=== PATIENT | female | born 1960 | race Caucasian/White ===

== ENCOUNTER 2024-09-06 11:11 | Observation (INO) ==
[2024-09-06] MEDS: SODIUM CHLORIDE 0.9% 1,000 ML IV SCH (11:39)
[2024-09-06 11:59] LABS: Basophils # (auto) 0.04 K/uL (0.00-0.20); Basophils % (auto) 0.5 %; Eosinophils # (auto) 0.02 K/uL (0.00-0.50); Eosinophils % (auto) 0.3 %; Hematocrit (blood only) 39.1 % (37.0-47.0); Hemoglobin 13.2 g/dl (12.0-16.0); Immature Granulocytes # (auto) 0.03 K/uL (0.01-0.20); Immature Granulocytes % (auto) 0.4 %; Lymphocytes # (auto) 0.77 K/uL (1.20-3.40); Lymphocytes % (auto) 9.8 %; Mean Corpuscular Hemoglobin 30.2 pg (25.0-34.0); Mean Corpuscular Hgb Conc 33.8 g/dL (32.0-36.0); Mean Corpuscular Volume 89.5 fL (80.0-100.0); Mean Platelet Volume 10.5 fL (9.4-12.4); Monocytes # (auto) 0.52 K/uL (0.11-0.59); Monocytes % (auto) 6.6 %; Neutrophils % (auto) 82.4 %; Platelet Count 276 K/uL (130-400); RDW Coefficient of Variation 13.5 % (11.5-14.5); RDW Standard Deviation 44.3 fL (36.4-46.3); Red Blood Count 4.37 M/uL (4.20-5.40); White Blood Count 7.88 K/ul (4.8-10.8)
--- NOTE | 2024-09-06 12:05 | XRay Report ---
EXAM: Radiograph of the Chest 1 View INDICATION: Syncope. TECHNIQUE: Frontal view of the chest. COMPARISON: No relevant prior studies available. FINDINGS: Lungs and pleural spaces: No consolidation or pulmonary edema. No pleural effusion or pneumothorax. Heart: Shape and configuration within normal limits allowing for technique. Mediastinum: Normal contour. Bones/joints: Degenerative changes noted throughout the spine. No acute osseous abnormality seen. Soft tissues: No abnormality noted. No radiopaque foreign body noted. Upper abdomen: No abnormality noted. IMPRESSION: No acute cardiopulmonary disease. ACT 112: Negative or not required by law. Electronically signed by Kasia Howard 09-06-2024 12:05 PM
[2024-09-06 12:15] LABS: Albumin Globulin Ratio 1.4 (0.9-2); Albumin Level 3.4 gm/dl (3.4-5.0); BUN Creatinine Ratio 14.5 (10-20); Bilirubin,Total 0.6 mg/dl (0.2-1.0); Calcium 8.1 mg/dl (8.6-10.3); Creatinine Clr Calc Pharmacy 85.1 ml/min; Globulin 2.4 gm/dl (2.5-4.0); Magnesium 1.9 mg/dl (1.7-2.4); Total Protein 5.8 gm/dl (6.0-8.3)
--- NOTE | 2024-09-06 12:34 | CT Scan Report ---
EXAM: CT Head Without Intravenous Contrast INDICATION: Syncope TECHNIQUE: Axial computed tomography images of the head/brain without intravenous contrast. Sagittal and/or coronal reformats are provided. Sagittal and coronal reformatted images were created and reviewed. This CT exam was performed using one or more of the following dose reduction techniques: automated exposure control, adjustment of the mA and/or kV according to patient size, and/or use of iterative reconstruction technique. COMPARISON: No relevant prior studies available. FINDINGS: Limitations: None. Brain and extra-axial spaces: Right frontal encephalomalacia subjacent to right craniectomy. Mild periventricular white matter hypodensity most typical of chronic ischemic changes. No territorial infarct. No hemorrhage. No extra-axial fluid collection or hydrocephalus. Bones/joints: No fracture. Soft tissues: No significant abnormality noted. Vasculature: No acute abnormality noted. Sinuses: No layering fluid in the visualized portions of the paranasal sinuses. Mastoid air cells: No mastoid effusion. Orbits: No significant abnormality noted. IMPRESSION: No acute abnormality. ACT 112: Negative or not required by law. Electronically signed by Kasia Howard 09-06-2024 12:33 PM
--- NOTE | 2024-09-06 12:37 | CT Scan Report ---
EXAM: CT Cervical Spine Without Intravenous Contrast INDICATION: Syncope TECHNIQUE: Axial computed tomography images of the cervical spine without intravenous contrast. Sagittal and coronal reformatted images were created and reviewed. This CT exam was performed using one or more of the following dose reduction techniques: automated exposure control, adjustment of the mA and/or kV according to patient size, and/or use of iterative reconstruction technique. COMPARISON: No relevant prior studies available. FINDINGS: Limitations: None. Vertebrae: Diffuse moderate facet hypertrophy. There is mild spondylosis and uncal spurring C5-C6 and C6-C7. No fracture or subluxation. Discs/spinal canal/neural foramina: There is mild to moderate to space narrowing C6-C7. There is asymmetric left mild ventral canal and left foraminal stenosis at this level. Soft tissues: No significant abnormality noted. Thyroid: Multiple right thyroid nodules present the largest measuring 2.3 x 2.1 cm. Lung apices: No significant abnormality noted. IMPRESSION: 1. No fracture. 2. Multilevel degenerative changes. 3. Right thyroid nodule. Nonemergent thyroid ultrasound recommended unless already known. ACT 112: Negative or not required by law. Electronically signed by Kasia Howard 09-06-2024 12:36 PM
[2024-09-06] MEDS: OPTIRAY 320 125ml IV ONE (13:15)
[2024-09-06 13:37] LABS: Appearance Urine Clear (Clear); Bacteria Urine Automated None Seen (None Seen); Bilirubin Urine Negative (Negative); Blood Urine Negative (Negative); Color Urine Yellow; Epithelial Cell Urine Auto 0-2 /hpf (0-2); Glucose Urine UA Negative (Negative); Ketones Urine 1+ (Negative); Leukocyte Esterase Urine Trace (Negative); Nitrite Urine Negative (Negative); Protein Urine Negative (Negative); RBC Urine Automated 0-2 /hpf (0-2); Specific Gravity Urine 1.016 (1.000-1.030); Urobilinogen Urine Negative (Negative); WBC Urine Automated 0-5 /hpf (0-5)
--- NOTE | 2024-09-06 13:44 | CT Scan Report ---
EXAM: CT Angiography Chest With Intravenous Contrast INDICATION: Rule out PE. TECHNIQUE: Axial computed tomographic angiography images of the chest with intravenous contrast. Sagittal and coronal reformatted images were created and reviewed. This CT exam was performed using one or more of the following dose reduction techniques: automated exposure control, adjustment of the mA and/or kV according to patient size, and/or use of iterative reconstruction technique. MIP reconstructed images were created and reviewed. CONTRAST: 119ml of Optiray 320 was administered intravenously. COMPARISON: No relevant prior studies available. FINDINGS: Pulmonary arteries: No abnormality noted. No pulmonary embolism. Aorta: No acute change noted. No thoracic aortic aneurysm or dissection. Lungs and pleural spaces: Trace bilateral layering pleural effusions noted. No pneumothorax. No mass. Heart: Mild cardiomegaly. Trace pericardial effusion. No right heart strain. Mediastinum: Small sliding hiatal hernia noted. Thyroid: There is a 2.3 x 2.2 x 2.6 cm right thyroid nodule. Bones/joints: Degenerative changes noted throughout the spine. No acute osseous abnormality seen. Soft tissues: No abnormality noted. Lymph nodes: No abnormality noted. No enlarged lymph nodes. IMPRESSION: 1. Trace bilateral pleural effusions. No pulmonary embolism noted. 2. Right thyroid nodule measures up to 2.6 cm. Nonemergent thyroid ultrasound recommended unless already known. ACT 112: Negative or not required by law. Electronically signed by Kasia Howard 09-06-2024 13:43 PM
[2024-09-06 13:53] LABS: Amphetamines+Metham, Urine Neg (Neg); Barbiturates, Urine Neg (Neg); Benzodiazepine, Urine Neg (Neg); Cocaine, Urine Neg (Neg); Fentanyl, Urine Neg (Neg); MDMA (Ecstacy), Urine Neg (Neg); Marijuana, Urine Neg (Neg); Methadone, Urine Neg (Neg); Opiate, Urine Neg (Neg); Phencyclidine, Urine Neg (Neg)
[2024-09-06] MEDS: POTASSIUM CHLORIDE CRTAB 20 MEQ TABCR PO STA (14:14)
--- NOTE | 2024-09-06 15:04 | History & Physical Report ---
Date of Service September 06, 2024 Assessment & Plan (1) Syncope due to orthostatic hypotension: (2) Medication adverse effect: (3) Hypokalemia: (4) Major depression, chronic: Plan Patient 64-year-old female presents to the emergency room with acute syncopal event. Syncope most likely due to severe orthostatic hypotension most likely caused by her taking some extra Risperdal. Observed in a monitored unit on telemetry to evaluate for any arrhythmias. Given additional 1 L of IV fluids over the next 10 hours Replace potassium Will not hold her usual Risperdal dose, but did inform the patient she will not get any additional Risperdal this evening. This will also allow us to see how she responds to her prescribed dose of Risperdal and ensure she does not have recurrent hypotension. Check orthostatic vital signs q. shifts at bedside, agreeable with the plan of care Anticipate if blood pressure stabilizes patient will be discharged tomorrow with instructions to take Risperdal only as prescribed History of Present Illness Chief Complaint: Passed out in bathroom Primary Care Provider: RONALDO Lai Patient is a 64-year-old female with minimal past medical history. She and her family were expecting a group of people to be at their house today for the Thanksgiving dinner. It was somewhat unusual that she was not up and preparing here this morning. Her was down stairs and he heard a thud coming from the upstairs bathroom. He found the patient lying in the bathroom after what it presumed to be a syncopal event. There is no significant confusion after the event. Able to get her to the bed but she had a second syncopal event. EMS was called. In transit to the ED patient received 1 L of IV fluids. In the ED her presentation blood pressure was extremely low. She received another liter of IV fluid and her blood pressure improved. Laboratory studies were remarkable for some hypokalemia. There was no significant arrhythmias noted on telemetry monitoring. But due to her symptomatology she was referred to our service for further evaluation. Time my evaluation the patient denies any symptoms. She could remember getting up and going to the bathroom and passing out in the bathroom next thing she remembers is looking up into her son's face. She she states that she has been feeling well. No cough or cold symptoms. No fever or chills. No shortness of breath, chest pain. No nausea vomiting, no new issues with her bowels or bladder. She states that she has been eating and drinking well. at the bedside states that they have been doing their usual activities. They have been a little bit more stressed preparing for the Thanksgiving meal but nothing that he felt was overwhelming. The patient does have significant depression which she follows with a psychiatrist. There has been no recent changes in her medications. However, patient did state that she took some extra Risperdal to help her sleep last evening. Explained to her that one of the side effects of Risperdal orthostatic hypotension and tachycardia both of which she has at this time. Patient uses alcohol rarely. Not a current smoker. She denies any history of previous syncopal events and no history of any type of cardiac issues. Allergies Allergy/AdvReac Type Severity Reaction Status Date / Time No Known Allergies Allergy Unverified 09/06/24 14:06 Home Medications Medication Instructions Recorded Confirmed Type aspirin 81 mg tablet,delayed 81 mg PO DAILY 09/06/24 09/06/24 History release citalopram 40 mg tablet 40 mg PO QAM 09/06/24 09/06/24 History multivitamin with minerals-folic 1 tab PO DAILY 09/06/24 09/06/24 History acid 200 mcg chewable tablet (Multivitamin Gummies) risperidone 1 mg tablet 1 mg PO HS 09/06/24 09/06/24 History zinc 50 mg capsule 50 mg PO DAILY 09/06/24 09/06/24 History Past Med/Surg History Problem List (Updated 09/06/24 @ 15:01 by Dioni Gaines DO) Major depression, chronic Hypokalemia Medication adverse effect Syncope due to orthostatic hypotension Social History Smoking Status: Never smoker Preferred Language: Latvian Feels Safe at Home: Yes Review of Systems Review of Systems: Pertinent positive and negative review of systems as mentioned in the HPI Physical Exam Physical Exam: Constitutional: Alert, fatigued in appearance, nontoxic HEENT: Mucous membranes moist. Sclera clear Neck: Soft, no adenopathy Lungs: Clear to auscultation, decreased, no wheezes rales or rhonchi CV: S1-S2, regular, tachycardic Abdomen: Soft, nontender, nondistended Extremities: No significant edema Musculoskeletal: No significant joint tenderness Neuro: No focal deficits Psych: Cooperative, normal mood Results & Data Results & Data Vital Signs (Past 12 Hours) Vital Signs Temp Pulse Pulse Resp BP BP Pulse Ox 09/06/24 14:31 110/51 L 09/06/24 14:21 112 H 16 94 09/06/24 14:17 102/74 09/06/24 14:00 87 20 102/62 93 09/06/24 13:51 89 17 93 09/06/24 13:45 98 H 13 97/64 L 96 09/06/24 13:42 103 H 18 96 09/06/24 13:36 97 H 11 L 96 09/06/24 13:24 111 H 16 98 09/06/24 13:00 98 H 16 99/65 L 98 09/06/24 12:51 104 H 23 97 09/06/24 12:46 113/59 L 09/06/24 12:42 106 H 25 H 113/69 97 09/06/24 12:39 106 H 22 98 09/06/24 12:30 97/69 L 09/06/24 12:24 117 H 22 98 09/06/24 12:17 90/63 L 09/06/24 12:03 106 H 19 98 09/06/24 12:01 88/54 L 09/06/24 12:01 106 H 17 88/54 L 98 09/06/24 11:51 108 H 23 99 09/06/24 11:46 93/53 L 09/06/24 11:45 112 H 23 99 09/06/24 11:42 103 H 15 98 09/06/24 11:37 96 09/06/24 11:29 107 H 15 80/37 L 98 09/06/24 11:26 113 H 09/06/24 11:16 98 09/06/24 11:16 36.6 C 105 H 18 79/57 L 98 O2 Del Method 09/06/24 14:31 09/06/24 14:21 09/06/24 14:17 09/06/24 14:00 09/06/24 13:51 09/06/24 13:45 09/06/24 13:42 09/06/24 13:36 09/06/24 13:24 09/06/24 13:00 09/06/24 12:51 09/06/24 12:46 09/06/24 12:42 09/06/24 12:39 09/06/24 12:30 09/06/24 12:24 09/06/24 12:17 09/06/24 12:03 09/06/24 12:01 09/06/24 12:01 09/06/24 11:51 09/06/24 11:46 09/06/24 11:45 09/06/24 11:42 09/06/24 11:37 Room Air 09/06/24 11:29 Room Air 09/06/24 11:26 09/06/24 11:16 Room Air 09/06/24 11:16 Room Air Diagnostic Findings Reviewed imaging, laboratory and diagnostic studies. Pertinent findings as below. Personally reviewed chest x-ray, no acute cardiopulmonary abnormalities Reviewed radiology reports for head CT, cervical spine CT and chest CTA, no acute findings CBC within normal ranges Basic metabolic profile reviewed, potassium 3.0 Creatinine 0.69 Lactate 1.8 Magnesium 1.9 Procalcitonin less than 0.02 Urinalysis unremarkable Urine drug screen negative Ethyl alcohol less than 10 EKG unavailable for review at this time/pending Reviewed outside EMR. Reviewed medication list, problem list, outpatient office notes. Confirm no recent change in medications
[2024-09-06] MEDS ORDERED: ALUMINUM/MAGNESIUM SUSP 30 ML UDC PO PRN (16:12)
[2024-09-06] MEDS ORDERED: ACETAMINOPHEN 325 MG TAB PO PRN (16:12)
[2024-09-06] MEDS ORDERED: ONDANSETRON INJ 2 MG/ML 2 ML VIAL IV PRN (16:12)
[2024-09-06] MEDS: SODIUM CHLORIDE 0.9% 500 ML IV SCH (16:17)
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
[2024-09-06] MEDS: POTASSIUM CHLORIDE CRTAB 20 MEQ TABCR PO ONE (17:34)
[2024-09-06] MEDS: SODIUM CHLORIDE 0.9% 1,000 ML IV ONE (17:35)
[2024-09-06] MEDS: risperiDONE 1 MG TABLET PO SCH (20:49)
[2024-09-07 07:16] LABS: BUN Creatinine Ratio 9.2 (10-20); Calcium 8.1 mg/dl (8.6-10.3); Creatinine Clr Calc Pharmacy 89.3 ml/min; Magnesium 2.1 mg/dl (1.7-2.4); Potassium 4.3 mmol/L (3.5-5.1)
[2024-09-07 07:47] VITALS: RESP 18; TEMP 97.7
[2024-09-07] MEDS: CITALOPRAM 40 MG TAB PO SCH (08:22)
[2024-09-07] MEDS: ASPIRIN 81 MG ECTAB PO SCH (08:22)
--- NOTE | 2024-09-07 09:11 | Hospitalist Progress Note ---
Date of Service September 07, 2024 Assessment & Plan (1) Syncope due to orthostatic hypotension: (2) Medication adverse effect: (3) Hypokalemia: (4) Major depression, chronic: Plan Per admitting service notes with addendum: Patient 64-year-old female presents to the emergency room with acute syncopal event. Syncope most likely due to severe orthostatic hypotension most likely caused by her taking some extra Risperdal. Observed in a monitored unit on telemetry to evaluate for any arrhythmias. Given additional 1 L of IV fluids over the next 10 hours Replace potassium Will not hold her usual Risperdal dose, but did inform the patient she will not get any additional Risperdal this evening. This will also allow us to see how she responds to her prescribed dose of Risperdal and ensure she does not have recurrent hypotension. Check orthostatic vital signs q. shifts at bedside, agreeable with the plan of care 09/07 Orthostatic vital signs including blood pressure and heart rate much improved after IV fluids No arrhythmia noted by telemetry Continue to monitor If blood pressure still remains stable at noon, will discharge patient Advised not to take additional Risperdal Advised to increase water intake-8 glasses/day Patient verbalized understanding and agreement Admission and Anticipated Discharge Date Admission Date: September 06, 2024 Subjective Follow-up for syncope, etc. Seen resting in bed, comfortable, not in distress, in good spirits States she feels much better overall Ambulating in the room to the bathroom with no problems No dizziness, shortness of breath, palpitations, chest pain, lightheadedness No other new symptoms States she is ready for discharge today Review of Systems Review of Systems: all noted and negative except for above Physical Exam Physical Exam: General- oriented x 3, not in distress, speaks in sentences with no effort or accessory muscle use Eyes- anicteric Neck- no JVD Lungs- clear breath sounds bilaterally, no crackles or wheezing Heart- normal rate, regular rhythm; no murmurs Abdomen- normal bowel sounds, nondistended, soft, nontender Extremities- no pretibial edema, no calf tenderness Neuro- alert, oriented x 3; no gross focal neurologic deficits Skin- warm & dry Results & Data Results & Data Vital Signs (Past 12 Hours) Vital Signs Temp Pulse Pulse Pulse Resp BP Pulse Ox 09/07/24 07:46 36.5 C 77 18 110/62 93 11/29/24 05:54 91 H 09/07/24 03:59 36.7 C 112 H 20 115/72 96 09/07/24 00:03 36.9 C 71 20 98/62 L 93 09/06/24 21:52 75 O2 Del Method 09/07/24 07:46 Room Air 09/07/24 05:54 09/07/24 03:59 Room Air 09/07/24 00:03 Room Air 09/06/24 21:52 all noted and reviewed including below
--- OUTSIDE RECORDS SUMMARY | 2024-09-07 09:22 | External Medical Summary | Summary of Care ---
Author Name Unknown Organization [facility] Address [address] [place] [address] Phone [phone] Care Team Providers Care Records Management Engineer Name Role Phone Nhung Larsen DO Primary Care Provider Reason for Visit * Reason Onset Date Comments Advice 08/28/2024 Encounter Details Date Type Department Care Team (Late st Contact Info) Description 08/28/2024 Telephone Family Practice [facility] [address] [place] [address] Nhung Larsen DO [address] [place] [address] Advice Allergies Active Allergy Reactions Criticality Noted Date Comments Vitamin A (Synthetic) Rash 01/25/2010 documented as of this encounter (statuses as of 08/28/2024) Medications CITALOPRAM HYDROBROMIDE 40 MG PO TABS 1 daily Active risperiDONE 1 MG Oral Tablet (RisperDAL) Take 1 Tablet by mouth at bedtime. 3 Active Aspirin 81 MG Oral Tablet Delayed Release (Aspirin 81) Take 1 Tablet by mouth in the morning. Active Zinc 20 MG Oral Capsule Take by mouth. Active Zoster Vac Recomb Adjuvanted 50 MCG/0.5ML Intramuscular Suspension Reconstituted (Shingrix) Inject 0.5 mL into a large muscle now and repeat dose in 60 to 180 days 1 Each 1 Active documented as of this encounter (statuses as of 08/28/2024) Active Problems Problem Noted Date Diagnosed Date Major depressive disorder, r ecurrent, severe with psychotic symptoms 08/28/2024 Calculus of gallbladder with out cholecystitis without obstruction 07/04/2023 Spasm of muscle 04/26/2011 Major depressive disorder, single episode, moder ate 06/29/2007 Irritable bowel syndrome documented as of this encounter (statuses as of 08/28/2024) Resolved Problems Problem Noted Date Diagnosed Date Resolved Date Food insecurity 04/18/2023 01/19/2024 Overview: Per [facility] Protocol ADVANCE DIRECTIVE INFORMATION 06/29/2007 08/13/2024 Overview (06/29/2007): No, Advance Directive brochure offered , patient declined. documented as of this encounter (statuses as of 08/28/2024) Immunizations Name Administration Dates Next Due COVID-19, MRNA-LNP, PF, 30 M CG/0.3 mL, 12 YRS AND ABOVE, IM (PFIZER-Comirnaty) 06/15/2024 H1N1 2009 Influenza, IM 09/29/2009 Seasonal Influenza Vac., MDV , IM, 0.5 mL (Fluzone) 07/11/2014,07/10/2013,06/27/2012,2010,08/04/2010,07/05/2009 Seasonal Influenza, High Dos e, Trivalent, PF, IM (Fluzone HD) 06/13/2024 Seasonal Influenza, PF, 6 M & above, IM , (FluLaval or Fluzone) 07/04/2023,06/18/2021,06/21/2020,2018,07/13/2018 Seasonal Influenza, Quadriva lent, No Preserve, IM 06/23/2017,06/29/2016,07/16/2015 TD, Preservative Free 04/01/2023 TDAP, Age 7 and older, IM (Adacel) 01/13/2009 Varicella Zoster Vaccine (Adult) 03/24/2022,05/2022 documented as of this encounter Social History Tobacco Use Types Packs/Day Years Used Date Smoking Tobacco: Former Smokeless Tobacco: Never Comments:smoked socially int o early 20' Alcohol Use Standard Drinks/Week Comments Yes 0 (1 standard drink = 0.6 oz pur e alcohol) rare Hunger Vital Sign Answer Date Recorded Within the past 12 months, y ou worried that your food would run out before you got the money to buy more. Never true 08/16/20 24 Within the past 12 months, t he food you bought just didn't last and you didn't have money to get more. Never true 08/16/2024 Childcare Answer Date Recorded Do you feel overwhelmed with taking care of a child, family member or friend? No 08/16/2024 Does your family need help f inding childcare? (Household - for ages 0-17 years) Not on file 08/16/2024 Clothing Answer Date Recorded Have you been unable to get clothing when it was really needed? No 08/16/2024 Is your family able to get c lothes or diapers when needed? (Household - for ages 0-17 years) Not on file 08/16/2024 Personal Safety Answer Date Recorded Do you feel unsafe or have concerns for your saf ety? No 08/16/2024 Do you have concerns for you r family's safety? (Household - for ages 0-17 years) Not on file 08/16/2024 Utilities Answer Date Recorded Do you have trouble paying y our heating, water, or electric bill? No 08/16/2024 Is your family able to pay t he heat, water, or electric bill? (Household - for ages 0-17 years) Not on file 08/16/2024 Does your family have access to good internet? (Household - for ages 0-17 years) Not on file 08/16/2024 Employment Status Answer Date Recorded Are you unemployed or without regular income? No 08/16/2024 Does the household have a re gular source of income? (Household - for ages 0-17 years) Not on file 08/16/2024 Social Connections Answer Date Recorded How often do you feel lonely or isolated from those around you? Sometimes 08/16/2024 Financial Resource Strain Answer Date R ecorded Do you have any trouble payi ng for your medications, or do you think you might in the future? No 08/16/2024 Does your family have troubl e paying for medicine? (Household - for ages 0-17 years) Not on file 08/16/2024 Transportation Needs Answer Date Record ed READ ONLY Do you have troubl e getting a ride to medical visits or work? Never True 08/16/2024 Does your family have a hard time getting a ride to doctors visits? (Household - for ages 0-17 years) Not on file 08/16/2024 Has lack of transportation k ept you from medical appointments, meetings, work, or from getting things needed for daily living? Check all that apply. No 08/16/2024 Do you (or your family) have trouble finding or paying for a ride (transportation)? (Household - for ages 0-17 years) Not on file 08/16/2024 Housing Stability Answer Date Recorded Do you currently live in a s helter or have no steady place to sleep at night? No 08/16/2024 READ ONLY Do you think you a re at risk of becoming homeless? No 08/16/2024 Does your family worry about paying for your home or becoming homeless? (Household - for ages 0-17 years) Not on file 1 10/16/2023 Are you homeless or worried that you might be in the future? No 08/16/2024 Are you (or your family) last eless or worried that you might be in the future? (Household - for ages 0-17 years) Not on file Food Insecurity Answer Date Recorded Do you need food for this week? No 08/16/2024 Are you able to get enough f ood for your family? (Household - for ages 0-17 years) Not on file 08/16/2024 Does your family need food t his week? (Household - for ages 0-17 years) Not on file 08/16/2024 Do you always have enough fo od for your family? (Household - for ages 0-17 years) Not on file 08/16/2024 Comments No Sex and Gender Information Value Date Recorded Sex Assigned at Female 03/31/2023 11:22 AM EDT Legal Sex Female 6:31 AM EST Gender Identity Female 03/31/2023 11:22 AM EDT Sexual Orientation Straight 03/31/2023 11 :22 AM EDT Occupation Industry Job Start Date Job End Date homemaker Not on file Not on file Not on file documented as of this encounter Miscellaneous Notes * Telephone Encounter - Juliet Lala LPN - 08/28/2024 2:12 PM EST Sebastián calling from [facility] pharmacy states he received a scrip 08/28/24 for shingles vaccine for patient. Patient received vaccines at pharmacy on 03/24/2022 and 12/15/2021. Immunization list updated. Left VM for patient on Identified Mobile # that vaccine is not needed. * Telephone Encounter - Tanika Apodaca OSA - 08/28/2024 1:57 PM EST Sebastián from [facility] call states that he received request for shingles vaccine for patient, patient had the vaccine 2 years ago, wanted to confirm this is correct, trans to [facility] nurse: Gene Patient had vaccine on 12/15/2021 and 03/24/2022 documented in this encounter Plan of Treatment Health Maintenance Due Date Last Done Comments Depression Monitoring 1971 HIV Screening 1974 Hepatitis C Screening 1977 Fecal Occult Blood Test 2004 Sigmoidoscopy 2004 Colonoscopy 07/18/2019 07/18/2009 Zoster Vaccines (1 of 2) 05/19/2022 03/24/2022, 03/0 05/2022 DXA Scan 2024 Pneumococcal Vaccine: 65+ Years (1 of 1 - PCV) 2024 COVID-19 Vaccine (2 - Pfizer risk series) 07/06/2024 06/15/2024 Mammogram 06/12/2025 06/12/2024, 08/3 10/2022, 04/27/2012, Additional history exists Cologuard 06/21/2026 06/21/2023, 03/2023, 06/15/2023 Colorectal Cancer Screening 06/21/2026 Diabetes Screening 08/01/2027 08/01/2024, 1 , 06/06/2023, Additional history exists Lipid Panel 08/01/2029 08/01/2024, 05/11, 09/09/2022, Additional history exists DTap/Tdap Vaccines (3 - Td or Tdap) 04/01/2033 04/01/2023, 01/13/2009 Cervical Cancer Screening Discontinued HPV/Co-Test Discontinued 01/11/2024 Pap Smear Discontinued 01/11/2024, 03/12, 03/18/2010, Additional history exists Influenza Vaccine (FLU shot) Completed 06/13/2024, 07/04/2023, 06/18/2021, Additional history exists HPV (Gardasil) Vaccine Aged Out No lo nger eligible based on patient's age to complete this topic Hepatitis B Vaccine Aged Out No longe r eligible based on patient's age to complete this topic MENINGOCOCCAL (MENACTRA/MENVEO) Aged Out No longer eligible based on patient's age to complete this topic documented as of this encounter Medical Devices Not on filedocumented as of this encounter Care Teams Records Management Engineer Relationship Specialty Start Date End Date Nhung Larsen DO [address] [place] [address] PCP - General Family Medicine 05/19/23 documented as of this encounter
--- OUTSIDE RECORDS SUMMARY | 2024-09-07 09:22 | External Medical Summary | Summary of Care ---
Author Name Unknown Organization [facility] Address [address] [place] [address] Phone [phone] Care Team Providers Care Timber Harvester Operator Name Role Phone Nhung Larsen DO Primary Care Provider Reason for Visit * Reason Onset Date Comments Advice 08/28/2024 Encounter Details Date Type Department Care Team (Late st Contact Info) Description 08/28/2024 Telephone Family Practice [facility] [address] [place] [address] Nhung Larsen DO [address] [place] [address] Advice Allergies Active Allergy Reactions Criticality Noted [...] 08/28/2024 2:12 PM EST Sebastián calling from [facility] pharmacy states he received a scrip 08/28/24 for shingles vaccine for patient. Patient received vaccines at pharmacy on 03/24/2022 and 12/15/2021. Immunization list updated. Left VM for patient on Identified Mobile # that vaccine is not needed. * Telephone Encounter - Tanika Apodaca OSA - 08/28/2024 1:57 PM EST Sebastián from [facility] call states that he received request for shingles vaccine for patient, patient had the vaccine 2 years ago, wanted to confirm this is correct, trans to [facility] nurse: Gene Patient had vaccine on 12/15/2021 [...] filedocumented as of this encounter Care Teams Timber Harvester Operator Relationship Specialty Start Date End Date Nhung Larsen DO [address] [place] [address] PCP - General Family Medicine 05/19/23 documented as of this encounter
--- OUTSIDE RECORDS SUMMARY | 2024-09-07 09:23 | External Medical Summary | Summary of Care ---
Author Name Unknown Organization [facility] Address [address] [place] [address] Phone [phone] Care Team Providers Care Steam Heating Installer Name Role Phone Nhung Larsen DO Primary Care Provider Reason for Visit * Reason Onset Date Comments Advice 08/28/2024 Encounter Details Date Type Department Care Team (Late st Contact Info) Description 08/28/2024 Telephone Family Practice [facility] [address] [place] [address] Nhung Larsen DO [address] [place] [address] Advice Allergies Active Allergy Reactions Criticality Noted [...] encounter Miscellaneous Notes * Telephone Encounter - Tanika Apodaca OSA - 08/28/2024 1:57 PM EST Sebastián from [facility] call states that he received request for shingles vaccine for patient, patient had the vaccine 2 years ago, wanted to confirm this is correct, trans to ded nurse: Gene Patient had vaccine on 12/15/2021 and 03/24/2022 documented in this encounter Plan of Treatment Health Maintenance Due Date Last Done Comments Depression Monitoring 1971 HIV Screening 1974 Hepatitis C Screening 1977 Fecal Occult Blood Test 2004 Sigmoidoscopy 2004 Colonoscopy 07/18/2019 07/18/2009 Zoster Vaccines (1 of 2) 05/19/2022 03/24/2022, 0305/2022 DXA Scan 2024 Pneumococcal Vaccine: 65+ Years (1 of 1 - PCV) 2024 COVID-19 Vaccine (2 - Pfizer risk series) 07/06/2024 06/15/2024 Mammogram 06/12/2025 06/12/2024, 05/12, 04/27/2012, Additional history exists Cologuard 06/21/2026 06/21/2023, 09/0 03/2023, 06/15/2023 Colorectal Cancer Screening 06/21/2026 Diabetes Screening 08/01/2027 08/01/2024, 1 , 06/06/2023, Additional history exists Lipid Panel 08/01/2029 08/01/2024, 08/2 05/2023, 09/09/2022, Additional history exists DTap/Tdap Vaccines (3 [...] filedocumented as of this encounter Care Teams Steam Heating Installer Relationship Specialty Start Date End Date Nhung Larsen DO [address] [place] [address] PCP - General Family Medicine 05/19/23 documented as of this encounter
--- OUTSIDE RECORDS SUMMARY | 2024-09-07 09:23 | External Medical Summary | Summary of Care ---
Author Name Unknown Organization [facility] Address [address] [place] [address] Phone [phone] Care Team Providers Care Corporate Associate Name Role Phone Nhung Larsen DO Primary Care Provider Encounter Details Date Type Department Care Team (Late st Contact Info) Description 06/13/2024 10:00 AM EDT Immunization Ancillary [facility] [address] [place] [address] [facility] [address] [place] [address] Allergies Active Allergy Reactions Criticality Noted Date Comments Vitamin A (Synthetic) Rash 01/25/2010 documented as of this encounter (statuses as of 06/13/2024) Medications Medication Sig Dispensed Refills Start Date End Date Status CITALOPRAM HYDROBROMIDE 40 MG PO TABS 1 daily Active risperiDONE 1 MG Oral Tablet (RisperDAL) Take 1 Tablet by mouth at bedtime. 02/25/2023 Active Cetirizine HCl 10 MG Oral Tablet (ZyrTEC) Take 1 Tablet by mouth in the morning. Active Aspirin 81 MG Oral Tablet Delayed Release (Aspirin 81) Take 1 Tablet by mouth in the morning. Active Zinc 20 MG Oral Capsule Take by mouth. Active documented as of this encounter (statuses as of 06/13/2024) Active Problems Problem Noted Date Diagnosed Date Calculus of gallbladder with out cholecystitis without obstruction 07/04/2023 Spasm of muscle 04/26/2011 ADVANCE DIRECTIVE INFORMATION 06/29/2007 Overview: No, Advance Directive brochure offered , patient declined. Major depressive disorder, single episode, moder ate 06/29/2007 Irritable bowel syndrome documented as of this encounter (statuses as of 06/13/2024) Resolved Problems Problem Noted Date Diagnosed Date Resolved Date Food insecurity 04/18/2023 01/19/2024 Overview: Per [facility] Protocol documented as of this encounter (statuses as of 06/13/2024) Immunizations Name Administration Dates Next Due H1N1 2009 Influenza, IM 09/29/2009 Seasonal Influenza, High Dos e, Trivalent, PF, IM (Fluzone HD) 06/13/2024 Seasonal Influenza, PF, 6 M & above, IM , (FluLaval or Fluzone) 07/04/2023,06/18/2021,06/21/2020,2018,07/13/2018 Seasonal Influenza, Quadriva lent, No Preserve, IM 06/23/2017,06/29/2016,07/16/2015 Seasonal Influenza, Trivalen t, (IIV3), with Preserv, (Fluzone) 07/11/2014,07/10/2013,06/27/2012,2010,08/04/2010,07/05/2009 TD, Preservative Free 04/01/2023 TDAP, Age 7 and older, IM (Adacel) 01/13/2009 documented as of this encounter Social History Tobacco Use Types Packs/Day Years Used Date Smoking Tobacco: Former Smokeless Tobacco: Never Comments:smoked socially int o early Alcohol Use Standard Drinks/Week Comments Yes 0 (1 standard drink = 0.6 oz pur e alcohol) rare Hunger Vital Sign Answer Date Recorded Within the past 12 months, y ou worried that your food would run out before you got the money to buy more. Never true 01/02/20 24 Within the past 12 months, t he food you bought just didn't last and you didn't have money to get more. Never true 01/02/2024 Childcare Answer Date Recorded Do you feel overwhelmed with taking care of a child, family member or friend? No 01/02/2024 Does your family need help f inding childcare? (Household - for ages 0-17 years) Not on file 01/02/2024 Clothing Answer Date Recorded Have you been unable to get clothing when it was really needed? Yes 01/02/2024 Is your family able to get c lothes or diapers when needed? (Household - for ages 0-17 years) Not on file 01/02/2024 Personal Safety Answer Date Recorded Do you feel unsafe or have concerns for your saf ety? No 01/02/2024 Do you have concerns for you r family's safety? (Household - for ages 0-17 years) Not on file 01/02/2024 Utilities Answer Date Recorded Do you have trouble paying y our heating, water, or electric bill? No 01/02/2024 Is your family able to pay t he heat, water, or electric bill? (Household - for ages 0-17 years) Not on file 01/02/2024 Does your family have access to good internet? (Household - for ages 0-17 years) Not on file 01/02/2024 Employment Status Answer Date Recorded Are you unemployed or without regular income? No 01/02/2024 Does the household have a re gular source of income? (Household - for ages 0-17 years) Not on file 01/02/2024 Social Connections Answer Date Recorded How often do you feel lonely or isolated from th ose around you? Never 01/02/2024 Financial Resource Strain Answer Date R ecorded Do you have any trouble payi ng for your medications, or do you think you might in the future? No 01/02/2024 Does your family have troubl e paying for medicine? (Household - for ages 0-17 years) Not on file 01/02/2024 Transportation Needs Answer Date Record ed READ ONLY Do you have troubl e getting a ride to medical visits or work? Never True 01/02/2024 Does your family have a hard time getting a ride to doctors visits? (Household - for ages 0-17 years) Not on file 01/02/2024 Has lack of transportation k ept you from medical appointments, meetings, work, or from getting things needed for daily living? Check all that apply. (Adult - for ages 18 years and over) Not on file 01/02/2024 Do you (or your family) have trouble finding or paying for a ride (transportation)? (Household - for ages 0-17 years) Not on file 01/02/2024 Housing Stability Answer Date Recorded Do you currently live in a s helter or have no steady place to sleep at night? No 01/02/2024 READ ONLY Do you think you a re at risk of becoming homeless? No 01/02/2024 Does your family worry about paying for your home or becoming homeless? (Household - for ages 0-17 years) Not on file 0 01/02/2024 Are you homeless or worried that you might be in the future? (Adult - for ages 18 years and over) Not on file Are you (or your family) last eless or worried that you might be in the future? (Household - for ages 0-17 years) Not on file Food Insecurity Answer Date Recorded Do you need food for this week? No 01/02/2024 Are you able to get enough f ood for your family? (Household - for ages 0-17 years) Not on file 01/02/2024 Does your family need food t his week? (Household - for ages 0-17 years) Not on file 01/02/2024 Do you always have enough fo od for your family? (Household - for ages 0-17 years) Not on file 01/02/2024 Sex and Gender Information Value Date Recorded Sex Assigned at Female 03/31/2023 11:22 AM EDT Gender Identity Female 03/31/2023 11:22 AM EDT Sexual Orientation Straight 03/31/2023 11 :22 AM EDT Job Start Date Occupation Industry Not on file Not on file Not on file documented as of this encounter Plan of Treatment Upcoming Encounters Date Type Department Care Team (Late st Contact Info) Description 08/28/2024 1:00 PM EST Office Visit Family Practice [facility] [address] [place] [address] Gretel Abdi CRNP [address] [place] [address] Health Maintenance Due Date Last Done Comments Depression Monitoring 1971 HIV Screening 1974 Hepatitis C Screening 1977 Fecal Occult Blood Test 2004 Sigmoidoscopy 2004 Zoster Vaccines (1 of 2) 2009 Colonoscopy 07/18/2019 07/18/2009 DXA Scan 2024 Pneumococcal Vaccine: 65+ Years (1 of 1 - PCV) 2024 COVID-19 Vaccine (1 - 2022-24 season) 2024 Mammogram 06/12/2025 06/12/2024, 05/12, 04/27/2012, Additional history exists Diabetes Screening 06/06/2026 06/06/2023, 0 06/06/2023, 09/09/2022, Additional history exists Cologuard 06/21/2026 06/21/2023, 090 03/2023, 06/15/2023 Colorectal Cancer Screening 06/21/2026 Lipid Panel 06/06/2028 06/06/2023, 12/0 10/2021, 10/08/2021, Additional history exists DTap/Tdap Vaccines (3 - [...] filedocumented as of this encounter Care Teams Corporate Associate Relationship Specialty Start Date End Date Nhung Larsen DO [address] [place] [address] PCP - General Family Medicine 05/19/23 documented as of this encounter
--- OUTSIDE RECORDS SUMMARY | 2024-09-07 09:23 | External Medical Summary ---
Author Name Unknown Address Unknown Organization [id number]:[facility] [place] - [address] [place] [address] Laboratory Report Ordering Provider Test Date Status PACO BACA 08/01/2024 08:16:55 Final Observation Date Value Abnormality Reference (Units ) Status Prolactin [Mass/volume] in Serum or Plasma by 3rd IS 08/01/2024 08:16:55 64.2 Above high normal 4.0-20.0 (ng/mL) Final Performing Location [facility] [place] - [address] [place] [address]
--- OUTSIDE RECORDS SUMMARY | 2024-09-07 09:23 | External Medical Summary | Summary of Care ---
Author Name Unknown Organization [facility] Address [address] [place] [address] Phone [phone] Care Team Providers Care Supervising Nurse Name Role Phone Nhung Larsen DO Primary Care Provider Reason for Visit * Reason Onset Date Comments Health Maintenance 06/07/2024 Encounter Details Date Type Department Care Team (Late st Contact Info) Description 06/07/2024 Telephone Family Practice [facility] [address] [place] [address] Nhung Larsen DO [address] [place] [address] Health Maintenance Allergies Active Allergy Reactions Criticality Noted Date Comments Vitamin A (Synthetic) Rash 01/25/2010 documented as of this encounter (statuses as of 06/07/2024) Medications Medication Sig Dispensed Refills Start Date [...] as of this encounter (statuses as of 06/07/2024) Active Problems Problem Noted Date Diagnosed Date Calculus of gallbladder with out cholecystitis without obstruction 07/04/2023 Spasm of muscle 04/26/2011 ADVANCE DIRECTIVE INFORMATION 06/29/2007 Overview: No, Advance Directive brochure offered , patient declined. Major depressive disorder, single episode, moder ate 06/29/2007 Irritable bowel syndrome documented as of this encounter (statuses as of 06/07/2024) Resolved Problems Problem Noted Date Diagnosed Date Resolved Date Food insecurity 04/18/2023 01/19/2024 Overview: Per [facility] Protocol documented as of this encounter (statuses as of 06/07/2024) Immunizations Name Administration Dates Next Due H1N1 2009 Influenza, IM 09/29/2009 Seasonal Influenza, PF, 6 M & above, [...] Tobacco: Never Comments:smoked socially int o early ' Alcohol Use Standard Drinks/Week Comments Yes 0 [...] 01/02/2024 Does the household have a re lar source of income? (Household - for ages [...] encounter Miscellaneous Notes * Telephone Encounter - Nathalia Scales LPN - 06/07/2024 12:19 PM EDT Care Gaps Comprehensive Care Outreach Last Office/Telemedicine Visit: 02/23/2024 (in office), Visit date not found (telemedicine) Next Office Visit: 08/28/2024 Hemoglobin AIC Results: Lab Results Component Value Date/Time HEMOGLOBIN A1C - [facility] 5.6 06/06/2023 07:27 AM HEMOGLOBIN A1C - [facility] 5.4 01/13/2021 08:01 AM HEMOGLOBIN A1C - [facility] 5.6 09/27/2019 09:10 AM HEMOGLOBIN A1C - [facility] 5.3 08/29/2018 08:24 AM HEMOGLOBIN A1C - [facility] 5.0 05/10/2014 09:25 AM BP Readings from Last 1 Encounters: 02/23/24 102/60 Reviewed Health Maintenance below: Health Maintenance Topic Date Due Depression Monitoring Never done HIV Screening Never done Hepatitis C Screening Never done Zoster Vaccines (1 of 2) Never done COVID-19 Vaccine ( - season) Never done DXA Scan Never done Pneumococcal Vaccine: 65+ Years (1 of 1 - PCV) Never done Mammogram 06/09/2024 Influenza Vaccine (FLU shot) (1) 06/10/2024 Dexa Mamm already scheduled Care Gap Outreach Action Taken: CO-Value message sent documented in this encounter Plan of Treatment Upcoming Encounters Date Type Department Care Team (Late st Contact Info) Description 06/12/2024 10:15 AM EDT Imaging Radiology [address] [place] [address] 08/28/2024 1:00 PM EST Office Visit Family Practice [facility] [address] [place] [address] Gretel Abdi CRNP [address] [facility] [place] [address] Health Maintenance Due Date Last Done Comments Depression Monitoring 1971 HIV Screening 1974 Hepatitis C Screening 1977 Fecal Occult Blood Test 2004 Sigmoidoscopy 2004 Zoster Vaccines (1 of 2) 2009 Colonoscopy 07/18/2019 07/18/2009 COVID-19 Vaccine ( - ) 06/10/2023 DXA Scan 2024 Pneumococcal Vaccine: 65+ Years (1 of 1 - PCV) 2024 Mammogram 06/09/2024 06/09/2023, 04/09, 04/09/2011, Additional history exists Influenza Vaccine (FLU shot) (#1) 2024 07/04/2023, 06/18/2021, 06/21/2020, Additional history exists Diabetes Screening 06/06/2026 06/06/2023, 0 06/06/2023, 09/09/2022, Additional history exists Cologuard 06/21/2026 06/21/2023, 090 03/2023, 06/15/2023 Colorectal Cancer Screening 06/21/2026 Lipid Panel 06/06/2028 06/06/2023, 1210/2021, 10/08/2021, Additional history exists DTap/Tdap Vaccines (3 - Td or Tdap) 04/01/2033 04/01/2023, 01/13/2009 Cervical Cancer Screening Discontinued HPV/Co-Test Discontinued 01/11/2024 Pap Smear Discontinued 01/11/2024, 03/12, 03/18/2010, Additional history exists HPV (Gardasil) Vaccine Aged [...] filedocumented as of this encounter Care Teams Supervising Nurse Relationship Specialty Start Date End Date Nhung Larsen DO [address] [place] [address] PCP - General Family Medicine 05/19/23 documented as of this encounter
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
--- OUTSIDE RECORDS SUMMARY | 2024-09-07 09:23 | External Medical Summary ---
Author Name Unknown Address Unknown Organization [id number]:[facility] [place] - [address] [facility] [place] [address] Laboratory Report Ordering Provider Test Date Status PACO BACA 08/01/2024 08:16:55 Final Observation Date Value Abnormality Reference (Units ) Status Triglyceride 08/01/2024 08:16:55 129 <=174 ( mg/dL) Final Triglyceride Reference Range s (mg/dL):
<150 Acceptable
150-174 Borderline high
175-499 High
>=500 Very high Cholesterol 08/01/2024 08:16:55 180 <200 (mg /dL) Final Total Cholesterol Reference Ranges (mg/dL):
<200 Desirable
200-239 Borderline high
>=240 High HDL 08/01/2024 08:16:55 58 >49 (mg/dL ) Final HDL Cholesterol Reference Ra nges (mg/dL):
>=60 High (Desirable)
<50 Low (Undesirable) For Females
<40 Low (Undesirable) For Males NON-HDL CHOLESTEROL 08/01/2024 08:16:55 122 <=159 (mg/dL) Final Non-HDL Cholesterol Referenc e Range (mg/dL):
<100 Target level for high risk ASCVD patient
<130 Optimal for general population
130-159 Near optimal for general population
160-189 Borderline High
190-219 High
>=220 Very High LDL, (calculated) 08/01/2024 08:16:55 96 <= 129 (mg/dL) Final LDL Cholesterol Reference Ra nges (mg/dL):
<70 Target level for high risk ASCVD patient
<100 Optimal for general population
100-129 Near optimal for general population
130-159 Borderline high
160-189 High
>=190 Very high Performing Location [facility] [place] - [address] [place] [address]
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
--- OUTSIDE RECORDS SUMMARY | 2024-09-07 09:23 | External Medical Summary ---
Author Name Unknown Address Unknown Organization K01:[facility] [place] [address] [place] [address] Laboratory Report Ordering Provider Test Date Status PACO BACA 08/01/2024 08:16:55 Final Observation Date Value Abnormality Reference (Units ) Status HbA1C 08/01/2024 08:16:55 5.6 4.0-5.6 (% ) Final The use of HbA1c to monitor glycemic status is based on normal hemoglobin and HbA composition. This test should not be used in patients with abnormal hemoglobin that affects the half life of the red blood cell or the in vivo glycation rates. Glucose, estimated average 08/01/2024 08:16:55 114 <126 (mg/dL) Final Performing Location [facility] [place] [address] [place] [address]
--- OUTSIDE RECORDS SUMMARY | 2024-09-07 09:23 | External Medical Summary | Summary of Care ---
Author Name Unknown Organization [facility] Address [address] [place] [address] Phone [phone] Care Team Providers Care Family Member Caretaker Name Role Phone Nhung Larsen DO Primary Care Provider [phone] Reason for Visit * Reason Comments Outpatient Testing Encounter Details Date Type Department Care Team (Latest Contact Info) Description 08/01/2024 8:10 AM EDT Laboratory Laboratory, [facility] [address] [facility] [place] [phone] [facility] [address] [facility] [place] [address] Major depressive disorder, recurrent episode, severe, with psychosis (HCC); Immunodeficiency due to treatment with immunosuppressive medication ([facility]) Allergies Active Allergy Reactions Criticality Noted Date Comments Vitamin A (Synthetic) Rash 01/25/2010 documented as of this encounter (statuses as of 08/01/2024) Medications Medication Sig Dispensed Refills Start Date [...] as of this encounter (statuses as of 08/01/2024) Active Problems Problem Noted Date Diagnosed Date Calculus of gallbladder with out cholecystitis without obstruction 07/04/2023 Spasm of muscle 04/26/2011 ADVANCE DIRECTIVE INFORMATION 06/29/2007 Overview: No, Advance Directive brochure offered , patient declined. Major depressive disorder, single episode, moder ate 06/29/2007 Irritable bowel syndrome documented as of this encounter (statuses as of 08/01/2024) Resolved Problems Problem Noted Date Diagnosed Date Resolved Date Food insecurity 04/18/2023 01/19/2024 Overview: Per [facility] Protocol documented as of this encounter (statuses as of 08/01/2024) Immunizations Name Administration Dates Next Due H1N1 2009 Influenza, IM 09/29/2009 Seasonal Influenza [...] 1:00 PM EST Office Visit Family Practice [facility] [address] [place] [address] Gretel Abdi CRNP [address] [place] [address] Pending Results Name Type Priority Associated Diagnoses Date /Time COMPREHENSIVE METABOLIC PANEL Lab Routine Major depressive disorder, recurrent episode, severe, with psychosis (HCC) 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) 08/01/2024 8:16 AM EDT LIPID PANEL WITH DIRECT LDL IF TG IS HIGH Lab Routine Major depressive disorder, recurrent episode, severe, with psychosis (HCC) 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) 08/01/2024 8:16 AM EDT HEMOGLOBIN A1C Lab Routine Major depressive disorder, recurrent episode, severe, with psychosis (HCC) 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) 08/01/2024 8:16 AM EDT PROLACTIN Lab Routine Major depressive disorder, recurrent episode, severe, with psychosis (HCC) 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) 08/01/2024 8:16 AM EDT Health Maintenance Due Date Last Done Comments Depression Monitoring 1971 HIV Screening 1974 Hepatitis C Screening 1977 Fecal Occult Blood Test 2004 Sigmoidoscopy 2004 Zoster Vaccines (1 of 2) 2009 Colonoscopy 07/18/2019 07/18/2009 DXA Scan 2024 Pneumococcal Vaccine: 65+ Years (1 of 1 - PCV) 2024 COVID-19 Vaccine ( - season) 2024 Mammogram 06/12/2025 06/12/2024, 05/12, 04/27/2012, [...] as of this encounter Visit Diagnoses Diagnosis Major depressive disorder, recurrent episode, severe, with psychosis (HCC) Major depressive disorder, recurrent episode, severe, specified as with psychotic behavior 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
[2024-09-07 10:58] VITALS: BP 104/69; O2SAT 95
--- NOTE | 2024-09-07 14:16 | Discharge Summary ---
Discharge Summary Date of Service September 07, 2024 delayed entry date of service noted above Principal Dx & Hospital Course #1 = Principal Diagnosis (1) Syncope due to orthostatic hypotension: (2) Medication adverse effect: (3) Hypokalemia: (4) Major depression, chronic: Plan Per admitting service notes with addendum: Patient 64-year-old female presents to the emergency room with acute syncopal event. Syncope most likely due to severe orthostatic hypotension most likely caused by her taking some extra Risperdal. Observed in a monitored unit on telemetry to evaluate for any arrhythmias. Given additional 1 L of IV fluids over the next 10 hours Replace potassium Will not hold her usual Risperdal dose, but did inform the patient she will not get any additional Risperdal this evening. This will also allow us to see how she responds to her prescribed dose of Risperdal and ensure she does not have recurrent hypotension. Check orthostatic vital signs q. shifts at bedside, agreeable with the plan of care 09/07 Orthostatic vital signs including blood pressure and heart rate much improved after IV fluids No arrhythmia noted by telemetry BP remained stable, asymptomatic Advised not to take additional Risperdal Advised to increase water intake-8 glasses/day Patient verbalized understanding and agreement Right Thyroid Nodule -- seen on cervical spine CT Right thyroid nodule. Nonemergent thyroid ultrasound recommended unless already known. -- thyroid ultrasound as outpatient Abnormal CT Angio Chest Findings Heart: Mild cardiomegaly. Trace pericardial effusion. No right heart strain. Mediastinum: Small sliding hiatal hernia noted. Thyroid: There is a 2.3 x 2.2 x 2.6 cm right thyroid nodule. -- further work up and management as outpatient Abnormal CT head Findings Mild periventricular white matter hypodensity most typical of chronic ischemic changes. -- futher management and work up as outpatient Notes For Next Care Provider Medication Changes From Visit None Admission HPI Per Admitting Provider Patient is a 64-year-old female with minimal past medical history. She and her family were expecting a group of people to be at their house today for the Thanksgiving dinner. It was somewhat unusual that she was not up and preparing here this morning. Her was down stairs and he heard a thud coming from the upstairs bathroom. He found the patient lying in the bathroom after what it presumed to be a syncopal event. There is no significant confusion after the event. Able to get her to the bed but she had a second syncopal event. EMS was called. In transit to the ED patient received 1 L of IV fluids. In the ED her presentation blood pressure was extremely low. She received another liter of IV fluid and her blood pressure improved. Laboratory studies were remarkable for some hypokalemia. There was no significant arrhythmias noted on telemetry monitoring. But due to her symptomatology she was referred to our service for further evaluation. Time my evaluation the patient denies any symptoms. She could remember getting up and going to the bathroom and passing out in the bathroom next thing she remembers is looking up into her son's face. She she states that she has been feeling well. No cough or cold symptoms. No fever or chills. No shortness of breath, chest pain. No nausea vomiting, no new issues with her bowels or bladder. She states that she has been eating and drinking well. at the bedside states that they have been doing their usual activities. They have been a little bit more stressed preparing for the Thanksgiving meal but nothing that he felt was overwhelming. The patient does have significant depression which she follows with a psychiatrist. There has been no recent changes in her medications. However, patient did state that she took some extra Risperdal to help her sleep last evening. Explained to her that one of the side effects of Risperdal orthostatic hypotension and tachycardia both of which she has at this time. Patient uses alcohol rarely. Not a current smoker. She denies any history of previous syncopal events and no history of any type of cardiac issues. Admission Exam Per Admitting Provider Constitutional: Alert, fatigued in appearance, nontoxic HEENT: Mucous membranes moist. Sclera clear Neck: Soft, no adenopathy Lungs: Clear to auscultation, decreased, no wheezes rales or rhonchi CV: S1-S2, regular, tachycardic Abdomen: Soft, nontender, nondistended Extremities: No significant edema Musculoskeletal: No significant joint tenderness Neuro: No focal deficits Psych: Cooperative, normal mood Discharge Exam General- oriented x 3, not in distress, speaks in sentences with no effort or accessory muscle use Eyes- anicteric Neck- no JVD Lungs- clear breath sounds bilaterally, no crackles or wheezing Heart- normal rate, regular rhythm; no murmurs Abdomen- normal bowel sounds, nondistended, soft, nontender Extremities- no pretibial edema, no calf tenderness Neuro- alert, oriented x 3; no gross focal neurologic deficits Skin- warm & dry Updated Medication List Medication Instructions Recorded Confirmed Type aspirin 81 mg tablet,delayed 81 mg PO DAILY 09/06/24 09/06/24 History release citalopram 40 mg tablet 40 mg PO QAM 09/06/24 09/06/24 History multivitamin with minerals-folic 1 tab PO DAILY 09/06/24 09/06/24 History acid 200 mcg chewable tablet (Multivitamin Gummies) risperidone 1 mg tablet 1 mg PO HS 09/06/24 09/06/24 History zinc 50 mg capsule 50 mg PO DAILY 09/06/24 09/06/24 History Hospital Stay Data Diagnostic Imagining Performed 09/06/24 12:01 CT cervical spine wo con Stat EXAM: CT Cervical Spine Without Intravenous Contrast INDICATION: Syncope TECHNIQUE: Axial computed tomography images of the cervical spine without intravenous contrast. Sagittal and coronal reformatted images were created and reviewed. This CT exam was performed using one or more of the following dose reduction techniques: automated exposure control, adjustment of the mA and/or kV according to patient size, and/or use of iterative reconstruction technique. COMPARISON: No relevant prior studies available. FINDINGS: Limitations: None. Vertebrae: Diffuse moderate facet hypertrophy. There is mild spondylosis and uncal spurring C5-C6 and C6-C7. No fracture or subluxation. Discs/spinal canal/neural foramina: There is mild to moderate to space narrowing C6-C7. There is asymmetric left mild ventral canal and left foraminal stenosis at this level. Soft tissues: No significant abnormality noted. Thyroid: Multiple right thyroid nodules present the largest measuring 2.3 x 2.1 cm. Lung apices: No significant abnormality noted. IMPRESSION: 1. No fracture. 2. Multilevel degenerative changes. 3. Right thyroid nodule. Nonemergent thyroid ultrasound recommended unless already known. ACT 112: Negative or not required by law. CT head/brain wo con Stat EXAM: CT Head Without Intravenous Contrast INDICATION: Syncope TECHNIQUE: Axial computed tomography images of the head/brain without intravenous contrast. Sagittal and/or coronal reformats are provided. Sagittal and coronal reformatted images were created and reviewed. This CT exam was performed using one or more of the following dose reduction techniques: automated exposure control, adjustment of the mA and/or kV according to patient size, and/or use of iterative reconstruction technique. COMPARISON: No relevant prior studies available. FINDINGS: Limitations: None. Brain and extra-axial spaces: Right frontal encephalomalacia subjacent to right craniectomy. Mild periventricular white matter hypodensity most typical of chronic ischemic changes. No territorial infarct. No hemorrhage. No extra-axial fluid collection or hydrocephalus. Bones/joints: No fracture. Soft tissues: No significant abnormality noted. Vasculature: No acute abnormality noted. Sinuses: No layering fluid in the visualized portions of the paranasal sinuses. Mastoid air cells: No mastoid effusion. Orbits: No significant abnormality noted. IMPRESSION: No acute abnormality. ACT 112: Negative or not required by law. Electronically signed by Kasia Howard 09-06-2024 12:33 PM 09/06/24 12:55 CT angio chest PE protocol Stat EXAM: CT Angiography Chest With Intravenous Contrast INDICATION: Rule out PE. TECHNIQUE: Axial computed tomographic angiography images of the chest with intravenous contrast. Sagittal and coronal reformatted images were created and reviewed. This CT exam was performed using one or more of the following dose reduction techniques: automated exposure control, adjustment of the mA and/or kV according to patient size, and/or use of iterative reconstruction technique. MIP reconstructed images were created and reviewed. CONTRAST: 119ml of Optiray 320 was administered intravenously. COMPARISON: No relevant prior studies available. FINDINGS: Pulmonary arteries: No abnormality noted. No pulmonary embolism. Aorta: No acute change noted. No thoracic aortic aneurysm or dissection. Lungs and pleural spaces: Trace bilateral layering pleural effusions noted. No pneumothorax. No mass. Heart: Mild cardiomegaly. Trace pericardial effusion. No right heart strain. Mediastinum: Small sliding hiatal hernia noted. Thyroid: There is a 2.3 x 2.2 x 2.6 cm right thyroid nodule. Bones/joints: Degenerative changes noted throughout the spine. No acute osseous abnormality seen. Soft tissues: No abnormality noted. Lymph nodes: No abnormality noted. No enlarged lymph nodes. IMPRESSION: 1. Trace bilateral pleural effusions. No pulmonary embolism noted. 2. Right thyroid nodule measures up to 2.6 cm. Nonemergent thyroid ultrasound recommended unless already known. ACT 112: Negative or not required by law. Electronically signed by Kasia Howard 09-06-2024 13:43 PM Dictated: 09/06/24 1312 Transcribed: Pending Results Patient Have Any Pending Studies at Discharge: No Discharge Instructions Given to Patient (Per Discharging Provider) Please resume your usual medications and only take as prescribed. Drink plenty of water-at least 8 glasses of water per day. PLEASE CALL YOUR PRIMARY CARE PHYSICIAN OR RETURN TO THE ER IF WITH WORSENING OF SYMPTOMS, INCLUDING Dizziness, lightheadedness, weakness, fevers or chills, chest pain, shortness of breath, palpitations, etc. FOLLOW UP WITH PRIMARY CARE PHYSICIAN In 1 week. The clinic will call you soon for the appointment schedule. Total Time Total Time Spent Total Time Spent (In Minutes): 50 minutes
[2024-09-07 14:25] VITALS: PULSE 112
--- NOTE | 2024-09-08 07:14 | Electrocardiogram Report ---
Test Reason : Blood Pressure : */* mmHG Vent. Rate : 112 BPM Atrial Rate : 112 BPM P-R Int : 142 ms QRS Dur : 76 ms QT Int : 384 ms P-R-T Axes : 54 16 49 degrees QTcB Int : 524 ms Sinus tachycardia Prolonged QT Abnormal ECG No previous ECGs available Confirmed by Frank Okeefe ([id number]) on 09/08/2024 7:14:24 AM Referred By: REFERRED SELF Confirmed By: Frank Okeefe
== END 2024-09-07 14:50 | disposition home or self-care (01) ==
LOC: ED 11:11 → 2N 11:11 → SUATTDRO 14:53 → 2N 15:46